=== PATIENT | male | born 1935 | race Caucasian/White ===

== ENCOUNTER → 2019-09-09 10:45 | Outpatient (CLI) | payer MEDICARE, OTHER, SELFPAY ==
--- NOTE | 2019-09-16 15:54 | PM.PFT.1 ---
Pulmonary Function Test Referral & Results Date Patient Seen: 09/09/19 Requesting provider: Artemio Nguyen Results: The spirometry demonstrates an FVC of 4.12 L which is 93% of predicted. The FEV1 was measured at 3.19 L which is 101% of predicted. The FEV1/FVC ratio was 77 which is 109% of predicted. Following the administration of bronchodilator there was no appreciable change to above normal numbers. Lung volumes show an SVC of 3.93 L which is 81% of predicted. The diffusing capacity was measured at 18.19 which is 50% of predicted. No hemoglobin value was provided, so no correction for potential anemia could be made, if appropriate. The maximum voluntary ventilation was normal Interpretation: This study demonstrates probably normal spirometry but a moderately severe reduction in diffusing capacity suggesting significant disease at the capillary alveolar level Clinical correlation suggested
== END ==
PROVIDERS: Family Provider Student in an Organized Health Care Education/Training Program; PCP Student in an Organized Health Care Education/Training Program; Referring Provider Student in an Organized Health Care Education/Training Program; Visit Provider Student in an Organized Health Care Education/Training Program
DX: J98.4 Other disorders of lung (principal); R53.82 Chronic fatigue, unspecified; Z87.891 Personal history of nicotine dependence
CPT/HCPCS: 94060; 94726; 94729

== ENCOUNTER → 2020-02-03 10:10 | Outpatient (CLI) | payer MEDICARE, OTHER, SELFPAY ==
--- NOTE | 2020-02-03 18:04 | DI.NM.S_ITS ---
DATE OF SERVICE: 02/03/2020 PROCEDURE: Exercise perfusion study. INDICATIONS: Shortness of breath, Paroxysmal AFib. RADIOPHARMACEUTICAL: 24.9 millicurie technetium-99m Myoview IV was injected at stress and 12.2 millicurie technetium-99m Myoview IV was injected at rest. CARDIAC STRESS: The patient underwent exercise perfusion study under the supervision of an attending staff. The patient walked on César protocol for 2 minutes and 20 seconds and achieved functional aerobic impairment of positive 36 percent, 96 percent of target heart rate and normal blood pressure response. The patient did not have any chest pain, but had significant shortness of breath during exercise. Achieved 4.6 METS of workload. Baseline EKG revealed sinus rhythm with low-voltage complexes. During stress, there were some PVCs and PACs, but no ischemic changes. In recovery, there was a short burst of atrial tachycardia without any obvious atrial fibrillation. RAW DATA: Heart is vertical. There is increased subdiaphragmatic activity. There is a hot spot near the apex, as well as liver position is high. GATED STUDY: Stress LV ejection fraction 70 percent without any obvious wall motion abnormalities and resting end-diastolic volume 129 mL. TID ratio is 0.86, which is within normal limits. Lung/heart ratio 0.41, which is within normal limits. MYOCARDIAL PERFUSION: Stress supine, resting supine and stress prone images were compared to each other. It appears to be that patient has predominantly fixed, moderate-size, moderate to severely decreased perfusion of distal anterior wall and apex without any significant reversible ischemia. CONCLUSION: There is a predominantly fixed apical and distal anterior wall defect, as stated below, without any reversible ischemia. There is increased subdiaphragmatic activity and hot spot seen near the apex. Heart is vertical. The liver position is high. On raw data, there are no obvious wall motion abnormalities and apex is moving well. Hence, this defect could be a persistent tissue attenuation artifact. However, one cannot rule out possibility of nontransmural myocardial infarction. Correlate clinically. Lucas Tafoya - WILBER/ainsley/evert doc#: [id number]/job#: [id number] dd: 02/03/2020 17:35:00 dt: 02/03/2020 17:55:00 DICTATING MD/COPIES TO: Andres Abarca MD COPIES MNE: LUIS;
== END ==
PROVIDERS: Family Provider Student in an Organized Health Care Education/Training Program; PCP Student in an Organized Health Care Education/Training Program; Referring Provider Internal Medicine Cardiovascular Disease; Visit Provider Internal Medicine Cardiovascular Disease
DX: I48.0 Paroxysmal atrial fibrillation (principal); R06.02 Shortness of breath
CPT/HCPCS: 78452; 93017; A9502

== ENCOUNTER → 2021-04-04 10:47 | Outpatient (CLI) | payer MEDICARE, OTHER, SELFPAY ==
--- OUTSIDE RECORDS SUMMARY | 2021-03-25 07:16 | XMS_ITS | Referral Summary ---
:1935 Author Organization [facility] Address [address] [place] [id number] Care Team Providers Name Role Phone Patrick Primary Care Provider Reason for Referral Consultation (Routine) - Authorized Specialty Diagnoses / Procedures Referred By Contact Refer red To Contact Diagnoses Centrilobular emphysema (CMS/HCC) Pulmonary fibrosis (CMS/HCC) Marvin Gaytan MD [facility] Procedures Complete PFT with DLCO [address] [address] Referral ID Status Reason Start Date Expiration Date Visits V isits Requested Authorized [id number] Authorized 04/26/2020 04/21/2021 1 1 MRI/CAT/PET Scan (Routine) - Authorized Specialty Diagnoses / Procedures Referred By Contact Refer red To Contact Radiology Diagnoses Interstitial pulmonary disease (CMS/HCC) Marvin Gaytan MD [facility] Procedures CT HIGH RESOLUTION CHEST [address] [place], [place] [address] [place] [phone] Phone: Referral ID Status Reason Start Expiration Visits Visits Date Date Requested Authorized [id number] Authorized Specialty 04/21/2021 1 1 Services 0 Required Reason for Visit Reason Comments Shortness of Breath pulm fibrosis Evaluate and Treat (Routine) - Closed Specialty Diagnoses / Procedures Referred By Contact Refer red To Contact Pulmonology Diagnoses Pulmonary fibrosis, unspecified Dyspnea, unspecified Vinny Zimmer DO [facility] Pulmonology Procedures [address] [facility] [address] [place], [place] [address] [place] [address] Phone: Fax: Referral ID Status Reason Start Date Expiration Date Visits Requ ested Visits Authorized [id number] Closed 04/11/2020 04/11/2021 1 1 Encounter Details Date Type Department Care Team Description 04/26/2020 Office Visit Ronnie Salinaslobufela r emphysema ([facility]) (Primary Dx); Clinics Pulmonology MD Marvin Hypoxemia; [place] [address] Pulmonary fibrosis ([facility]) ; [address] Interstitial pulmonary disease ([facility]) ; [place], [place] Paroxys mal atrial fibrillation ([facility]) [id number] Allergies Active Allergy Reactions Severity Noted Date Comments Codeine 04/01/2017 Naproxen 09/11/2010 Venom-Wasp Hives High 06/21/2013 documented as of this encounter (statuses as of 03/22/2021) Medications Medication Sig Dispensed Refills Start End Date Status Date levothyroxine Take 50 mcg by 0 A ctive (SYNTHROID, mouth daily 7 LEVOTHROID) 50 mcg tablet warfarin Take 5 mg 5 Active (COUMADIN) 5 mg eda, 7 tablet , Thursday and Thursday. On Thursday, Thursday, and Thursday take 7.5 mg magnesium oxide Take 400 mg by 0 Active (MAG-OX) 400 mg mouth daily 7 tablet atorvastatin Take 10 mg by 0 Act laisha (LIPITOR) 20 mg mouth every 0 tablet evening Take 0.5 tablets by mouth in morning pantoprazole Take 1 tablet 90 tablet 3 07/02/20 Exp ired (PROTONIX) 40 mg (40 mg total) 9 20 EC tablet by mouth every morning before breakfast bicalutamide TAKE ONE 30 tablet 11 09/11/19 Discont inued (CASODEX) 50 mg TABLET BY 0 21 chemo tablet MOUTH EVERY DAY TAKE AT THE SAME TIME EVERY DAY WITH OR WITHOUT FOOD diltiazem CD Take 1 capsule 180 capsule 3 05/07/20 Discontinued (CARDIZEM CD) 120 (120 mg total) 0 20 (Reorder) mg 24 hr capsule by mouth 2 (two) times a day for pulse rate control during atrial fibrillation. documented as of this encounter (statuses as of 03/22/2021) Active Problems Problem Noted Date Centrilobular emphysema 04/26/2020 Pulmonary fibrosis 04/26/2020 Hypoxemia 04/26/2020 Paroxysmal atrial fibrillation 10/20/2019 Lower GI bleeding 06/30/2019 Change in bowel habits 08/09/2018 Overview: Added automatically from request for eugenia alvarez [id number] Prostate cancer 06/04/2017 documented as of this encounter (statuses as of 03/22/2021) Social History Tobacco Use Types Packs/Day Years Used Date Former Smoker Smokeless Tobacco: Never Used Comments: quit in Alcohol Use Standard Drinks/Week Comments No 0 (1 standard drink = 0.6 oz pure alcoho l) Sex Assigned at Date Recorded Male 08/27/2019 2:28 PM PST Job Start Date Occupation Industry Not on file Not on file Not on file documented as of this encounter Last Filed Vital Signs Vital Sign Reading Time Taken Comments Blood Pressure 115/73 04/26/2020 1:04 PM PDT Pulse 56 04/26/2020 1:04 PM PDT Temperature - - Respiratory Rate - - Oxygen Saturation 99% 04/26/2020 1:04 PM PDT Inhaled Oxygen Concentration - - Weight 73.8 kg (162 lb 11.2 oz) 04/26/2020 1:04 PM PDT Height 185.4 cm (6' 1) 04/26/2020 1:04 PM PDT Body Mass Index 21.47 04/26/2020 1:04 PM PDT documented in this encounter Progress Notes Marvin Gaytan MD - 04/26/2020 1:00 PM PDT You need follow up PFTs and chest CT in September 2020. Follow up with Dr. Gaytan after tests. Mario Gaytan MD - 04/26/2020 1:00 PM PDT Subjective Patient ID: Lucas Tafoya is a 84 y.o. male that had concerns including Shortness of Breath and pulm fibrosis. HPI The patient is a pleasant 84-year-old man with history of shortness of breath over the last several months. Patient reports progressive dyspnea with activity. Was recently seen in the emergency department for shortness of breath. The patient reports that he was seen by his primary care provider a we ek ago and was started on supplemental oxygen at home. The patient reports approximately [id number] history of smoking but quit in 1984. 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 Initial diagnosed in 2000. Received prostate resection and then radiation therapy. Also received radiation therapy to the chest. Follow-up imaging showed no evidence of recurrenceof prostate cancer. Patient had CT of the chest and abdomen on August 25, 2019 which demonstratedapical emphysema but also areas of reticulation and honeycomb changes in the subpleural lower lobe areas. As mild bronchiectasis in the left lung. Denies any cough or wheezing. Patient has history of chronic atrial fibrillation and is on anticoagulation. Also has been diagnosed with sleep apnea and is being followed in [place]. Uses CPAP therapy but reports dry mouth. Past Medical History: Diagnosis Date ??? Atrial fibrillation (CMS/HCC) ??? Colon polyp ??? Diverticulitis ??? Diverticulosis ??? Emphysema of lung (CMS/HCC) ??? GERD (gastroesophageal reflux disease) ??? Hiatal hernia ??? Incontinence of urine ??? Kidney stone ??? Lichen planus ??? Pneumonia ??? Sleep apnea Past Surgical History: Procedure Laterality Date ??? ARM SKIN LESION BIOPSY / EXCISION Left 11/04/2004 [facility]_5cm CAYLA soft tissue_ Melchor Maciel MD ??? CATARACT EXTRACTION ??? COLON SURGERY resection ??? COLONOSCOPY W/ BIOPSIES 10/09/2011 [facility]_MD Angelica ??? COLONOSCOPY W/ BIOPSIES AND POLYPECTOMY 10/09/2011 Colon, Sigmoid, Biopsy_MD Bridgette per NexGen ??? LEG SURGERY foreign metal object removed ??? PA COLONOSCOPY FLX DX W/COLLJ SPEC WHEN PFRMD N/A 08/18/2018 Procedure: COLONOSCOPY; Surgeon: Cecil Hastings MD; Location: [facility] GI; Service: General ??? PA COLONOSCOPY FLX DX W/COLLJ SPEC WHEN PFRMD N/A 07/01/2019 Procedure: Upper endoscopy and colonoscopy; Surgeon: Mal Manuel MD; Location: [facility] GI; Service: Gastroenterology ??? PA ESOPHAGOGASTRODUODENOSCOPY TRANSORAL DIAGNOSTIC N/A 07/01/2019 Procedure: DIAGNOSTIC UPPER GASTROINTESTINAL ENDOSCOPY WITH COLLECTION OF SPECIMEN BY WASHING; Surgeon: Mal Manuel MD; Location: [facility]; Service: Gastroenterology ??? PROSTATECTOMY Family History Problem Relation Age of Onset ??? No Known Problems Mother ??? No Known Problems Father Social History Socioeconomic History ??? Marital status: Spouse name: Not on file ??? Number of children: Not on file ??? Years of education: Not on file ??? Highest education level: Not on file Occupational History ??? Not on file Social Needs ??? Financial resource strain: Not on file ??? Food insecurity Worry: Not on file Inability: Not on file ??? Transportation needs Medical: Not on file Non-medical: Not on file Tobacco Use ??? Smoking status: Former Smoker ??? Smokeless tobacco: Never Used ??? Tobacco comment: quit in Substance and Sexual Activity ??? Alcohol use: No ??? Drug use: Never ??? Sexual activity: Defer Lifestyle ??? Physical activity Days per week: Not on file Minutes per session: Not on file ??? Stress: Not on file Relationships ??? Social connections Talks on phone: Not on file Gets together: Not on file Attends confucianism service: Not on file Active member of club or organization: Not on file Attends meetings of clubs or organizations: Not on file Relationship status: Not on file Other Topics Concern ??? Not on file Social History Narrative ??? Not on file Allergies Allergen Reactions ??? Venom-Wasp Hives ??? Codeine ??? Naproxen Current Medication List Sig atorvastatin (LIPITOR) 20 mg tablet Take 10 mg by mouth every evening Take 0.5 tablets by mouth in morning bicalutamide (CASODEX) 50 mg chemo tablet TAKE ONE TABLET BY MOUTH EVERY DAY TAKE AT THE SAME TIME EVERY DAY WITH OR WITHOUT FOOD diltiazem CD (CARDIZEM CD) 120 mg 24 hr capsule Take 1 capsule (120 mg total) by mouth 2 (two) times a day for pulse rate control during atrial fibrillation. levothyroxine (SYNTHROID, LEVOTHROID) 50 mcg tablet Take 50 mcg by mouth daily magnesium oxide (MAG-OX) 400 mg tablet Take 400 mg by mouth daily pantoprazole (PROTONIX) 40 mg EC tablet Take 1 tablet (40 mg total) by mouth every morning before breakfast warfarin (COUMADIN) 5 mg tablet Take 5 mg , , Thursday and Thursday. On Thursday, Thursday, and Thursday take 7.5 mg Review of Systems Constitutional: Positive for fatigue and unexpected weight change. Respiratory: Positive for apnea and shortness of breath. Allergic/Immunologic: Positive for environmental allergies. Neurological: Positive for tremors and light-headedness. Objective BP 115/73 (BP Location: Left arm, Patient Position: Sitting) Pulse (!) 56 Ht 1.854 m Wt 73.8 kg SpO2 99% BMI 21.47 kg/m?? Physical Exam Vitals signs reviewed. Constitutional: Appearance: Normal appearance. HENT: Head: Normocephalic. Nose: Nose normal. Mouth/Throat: Mouth: Mucous membranes are moist. Eyes: Extraocular Movements: Extraocular movements intact. Cardiovascular: Rate and Rhythm: Normal rate. Rhythm irregular. Heart sounds: No murmur. No gallop. Pulmonary: Effort: Pulmonary effort is normal. No respiratory distress. Breath sounds: Rhonchi present. No wheezing or rales. Abdominal: General: Abdomen is flat. Skin: General: Skin is warm. Neurological: General: No focal deficit present. Mental Status: He is alert and oriented to person, place, and time. Psychiatric: Behavior: Behavior normal. EXAM DATE: 08/25/2019 13:54 ORDERED FROM: [facility] ORDERING PHYSICIAN: CHRISTOPH LEIGH CC: -- - - - CONTRAST: ISOVUE 300 100ML READING STATION ID: [id number] mGy: PROCEDURE: CT CHEST ABDOMEN PELVIS WITH CONTRAST INDICATIONS: prostate cancer, surveillance TECHNIQUE: After the administration of oral and intravenous contrast, 5 mm thick sections acquired from the lung apices to the symphysis. 5 mm coronal and sagittal reformats were performed, with additional 7 mm axial MIP reformats through the lungs. For radiation dose reduction, the following was used: automated exposure control, adjustment of mA and/or kV according to patient size. COMPARISON: [facility], CT, CT CHEST ABDOMEN PELVIS WITH CONTRAST, 07/21/2018, 12:14. FINDINGS: Image quality: Excellent. CHEST: Lungs and pleura: There are mild apical centrilobular and paraseptal emphysematous changes, but mostpredominantly upper and lower lobe subpleural reticulation with honeycombing along the posterior lower lobes bilaterally. Small consolidative change at the posterior left lung base where slight traction bronchiectasis is also present. Scattered parenchymal cysts in the right middle and bilateral lowerlobes. Findings are fairly stable. No new pulmonary nodules, masses, or effusions. Central and peripheral airways appear patent and normal in caliber. Mediastinum: Heart size is normal. The moderate to heavy coronary artery calcification. No pericardial effusion. No mediastinal or hilar adenopathy by size criteria. Thoracic aorta and central pulmonary arteries are normal in size. Esophagus is normal in caliber. Large, chronic hiatal hernia. Chest wall: Left IJ Mediport. Moderate bilateral gynecomastia. No axillary or supraclavicular adenopathy by size criteria. Thyroid gland is normal. ABDOMEN: Solid organs: Liver is normal in size and enhancement. Gallbladder contains a small calcification layering in the neck. Kidneys demonstrate normal size and enhancement, without hydronephrosis. Multiple small renal cysts bilaterally. Nonobstructing calcifications in the left kidney upper pole. Biliary system is non dilated. Pancreas enhances normally. Spleen is normal in size and enhancement. Noadrenal nodules. Peritoneum and bowel: Surgical changes of partial colectomy. Normal small bowel. Diverticulosis and increased quantity of solid stool in the colon. No free fluid or air. Nodes and vessels: No retroperitoneal or mesenteric adenopathy by size criteria. Aorta and inferior vena cava are normal in size. Mild abdominal aortic calcification. Miscellaneous: No ventral hernias. PELVIS: Genitourinary: Bladder wall thickness is normal. The prostate gland is surgically absent. Miscellaneous: No inguinal hernias or adenopathy. Bones: No suspicious bony lesions. Chronic vertebral body hemangioma and healing left posterior ribfractures. No vertebral body compression fractures. IMPRESSION: 1. No CT evidence of residual or recurrent disease in the chest, abdomen, or pelvis. 2. No new adenopathy. 3. Chronic and fairly stable changes of pulmonary emphysema and pulmonary fibrosis. 4. Cholelithiasis. 5. Nephrolithiasis. 6. Prostatectomy and partial colectomy PFTs from [place] in September 2019 showed normal gloria and lung volumes with no evidence of obstructive or restrictive disease. No results found for this or any previous visit (from the past 672 hour(s)). Patient Active Problem List Diagnosis ??? Prostate cancer (CMS/HCC) ??? Change in bowel habits ??? Lower GI bleeding ??? Paroxysmal atrial fibrillation (CMS/HCC) ??? Centrilobular emphysema (CMS/HCC) ??? Pulmonary fibrosis (CMS/HCC) ??? Hypoxemia Assessment/Plan Diagnoses and all orders for this visit: Centrilobular emphysema (CMS/HCC) - Complete PFT with DLCO; Future Hypoxemia Pulmonary fibrosis (CMS/HCC) - Complete PFT with DLCO; Future Interstitial pulmonary disease (CMS/HCC) - CT HIGH RESOLUTION CHEST; Future Paroxysmal atrial fibrillation (CMS/HCC) Assessment/Plan Comments: #1. There are some areas of emphysema consistent with previous history of smoking but no evidence of any significant airflow limitation on recent pulmonary function tests. #2. I personally reviewed pulmonary function test and CT. The mild fibrotic changes may be relatedto previous history of radiation therapy to the chest. Differential diagnosis also includes early IPF. No evidence of restrictive defect. We discussed the difference between emphysema and pulmonary fibrosis. At this time would recommend observation and will repeat high-resolution CT of the chest and pulmonary function test in September patient follow-up with me afterwards. #3. Hypoxemia. Patient has home oxygen. Today oxygen saturations were 99% and patient did not desaturate during 6-minute walk test. His episodes of hypoxemia or shortness of breath may have been due to atrial fibrillation. Patient reports having mildly reduced ejection fraction. Patient is scheduled to follow-up with cardiology. #4 atrial fibrillation. As discussed above. May be contributing to patient's shortness of breath. All questions were answered and patient and his were appreciative. Electronically signed by Marvin Gaytan MD 04/26/2020 2:18 PM documented in this encounter Plan of Treatment Scheduled Orders Name Type Priority Associated Diagnoses Order S chedule CT HIGH RESOLUTION Imaging Routine Interstitial pulmonary Expected: CHEST disease (CMS/HCC) 09/10/2020 , Expires: 07/27/2021 Complete PFT with DLCO PFT Routine Centrilobular emph ysema Expected: (CMS/HCC) 09/10/2020, Expires: Pulmonary fibrosis (CMS/HCC) documented as of this encounter Visit Diagnoses Diagnosis Centrilobular emphysema (CMS/HCC) - Prim marcus Hypoxemia Pulmonary fibrosis (CMS/HCC) Postinflammatory pulmonary fibrosis Interstitial pulmonary disease (CMS/HCC) Paroxysmal atrial fibrillation (CMS/HCC) Atrial fibrillation documented in this encounter Insurance Payer Benefit Plan / Subscriber ID Effective Dates Phone Addre ss Type Group MEDICARE MEDICARE PART [id number] 2000-Presen [phone] [address] [place] [address] [employer] [id number] 2019-Presen [phone] [address] [address] [address] [place] [address] documented as of this encounter Advance Directives Documents on File Type Date Recorded Patient Employee Benefits Director Explanati on Advance Directives and Living Will Latest Code Status on File Code Status Date Activated Date Inactivated Comments Full Code 07/01/2019 6:50 PM 07/02/2019 1:47 PM Full Code 06/30/2019 7:36 PM 07/01/2019 6:50 PM Full Code 06/30/2019 6:24 PM 06/30/2019 7:36 PM Full Code 08/18/2018 12:44 PM 08/18/2018 4:28 PM Care Teams Electronic Train Control Technician Relationship Specialty Start Date End Date Artemio Nguyen PCP - General 03/06/[address] [place] [id number] documented as of this encounter
[2021-04-04 11:43] LABS: COVID19 -Nasal RAPID Negative (Negative)
--- NOTE | 2021-04-10 09:45 | PM.PFT.1 ---
Pulmonary Function Test Referral & Results Date Patient Seen: 04/04/21 Requesting provider: Marvin Gaytan Indication: Emphysema, pulmonary fibrosis Results: The spirometry demonstrates an FVC of 3.65 L which is 84% of predicted. The FEV1 was measured at 3.33 L which is 109% of predicted. The FEV1/FVC ratio was 91 which is 130% of predicted. Following the administration of bronchodilator there was no appreciable change Lung volumes show an SVC of 3.42 L which is 71% of predicted. The diffusing capacity was measured at 17.06 which is 46% of predicted. No hemoglobin value was provided, so no correction for potential anemia could be made, if appropriate. The maximum voluntary ventilation was Normal Interpretation: This study demonstrates reduction in lung volumes suggesting mild to moderate restrictive lung disease. Diffusing capacity is more severely affected suggesting more significant disease at the capillary alveolar level Compared to PFTs performed in September of 2019, current study is essentially unchanged
== END ==
PROVIDERS: Family Provider Student in an Organized Health Care Education/Training Program; PCP Student in an Organized Health Care Education/Training Program; Referring Provider Internal Medicine Critical Care Medicine; Visit Provider Internal Medicine Critical Care Medicine
DX: J43.2 Centrilobular emphysema (principal); J84.10 Pulmonary fibrosis, unspecified; Z87.891 Personal history of nicotine dependence
CPT/HCPCS: 87635; 94060; 94726; 94729; C9803

== ENCOUNTER → 2022-04-24 10:14 | Outpatient (CLI) | payer MEDICARE, OTHER, SELFPAY ==
[2022-04-24 11:02] LABS: COVID19 -Nasal RAPID Negative (Negative)
== END ==
PROVIDERS: Family Provider Student in an Organized Health Care Education/Training Program; PCP Student in an Organized Health Care Education/Training Program; Referring Provider Internal Medicine; Visit Provider Internal Medicine
DX: Z20.822 Contact with and (suspected) exposure to COVID-19 (principal)
CPT/HCPCS: 87635; C9803

== ENCOUNTER → 2022-04-24 10:17 | Outpatient (CLI) | payer MEDICARE, OTHER, SELFPAY ==
--- NOTE | 2022-04-30 11:28 | PM.PFT.1 ---
Pulmonary Function Test Referral & Results Date Patient Seen: 04/24/22 Requesting provider: Marvin Gaytan Results: The spirometry demonstrates an FVC of 3.32 L which is 77% of predicted. The FEV1 was measured at 3.07 L which is 102% of predicted. The FEV1/FVC ratio was 92 which is 132% of predicted. Following the administration of bronchodilator there was no appreciable change. Lung volumes show an SVC of 3.01 L which is 63% of predicted. The diffusing capacity was measured at 14.32 which is 39% of predicted. No hemoglobin value was provided, so no correction for potential anemia could be made, if appropriate. The maximum voluntary ventilation was normal Interpretation: This study demonstrates normal forced spirometry but there is a moderate reduction in lung volumes suggesting the presence of moderate restrictive lung disease There is a moderately severe reduction diffusing capacity suggesting moderately severe disease at the capillary alveolar level Compared to PFTs performed in March 2021, current study shows decline in diffusing capacity but spirometry appears essentially unchanged although the maybe a slight reduction in total lung volume as well suggesting perhaps some advancement of restrictive lung disease Clinical correlation suggested
== END ==
PROVIDERS: Family Provider Student in an Organized Health Care Education/Training Program; PCP Student in an Organized Health Care Education/Training Program; Referring Provider Internal Medicine Critical Care Medicine; Visit Provider Internal Medicine Critical Care Medicine
DX: R06.02 Shortness of breath (principal); Z20.822 Contact with and (suspected) exposure to COVID-19; Z87.891 Personal history of nicotine dependence; J98.8 Other specified respiratory disorders
CPT/HCPCS: 87635; 94060; 94726; 94729; C9803

== ENCOUNTER → 2022-09-01 14:41 | Outpatient (CLI) | payer MEDICARE, OTHER, SELFPAY ==
--- NOTE | 2022-09-01 14:44 | DI.ECHO.S_ITS ---
[facility] +---------+ : : [address] : [address] [place] : : : : [id number] : : : : Phone: [phone] +---------+ Echocardiogram Report + + :Name: BARBARA HOUSTON Study Date: 09/01/2022 Height: 72 in : :[facility] ReadingLocation: Weight: 153 lb: : Gender: Male BSA: 1.9 m2 : :: 1935 Age: 86 yrs : :Reason For Study: Paroxysmal atrial fibrillation : :Ordering Physician: Paul : :Tanja Performed By: Dana Walters : :Referring: PAUL PIMENTEL C : + + Interpretation Summary The patient was in atrial fibrillation with rapid ventricular response during the exam with a heart rate exceeding 100 bpm. Normal left ventricle size with ejection fraction 55 +/- 5%. Mild aortic valve sclerosis. Mild mitral annular calcification. Mild to moderate mitral regurgitation. Mild tricuspid regurgitation. Procedure: A two-dimensional transthoracic echocardiogram with color flow and Doppler was performed. The study quality was technically adequate. There has been no significant change since the previous study. The patient was in atrial fibrillation with rapid ventricular response during the exam with a heart rate exceeding 100 bpm. Left Ventricle: The left ventricle is normal in size and wall thickness. Left ventricular ejection fraction is estimated to be 55 +/- 5%. There are no focal wall motion abnormalities. Diastolic function could not be accurately assessed due to atrial fibrillation. Right Ventricle: The right ventricle is normal in size and function. Atria: The left atrial size is normal. Right atrial size is normal. There is no Doppler evidence for an interatrial shunt. Mitral Valve: The mitral valve leaflets appear mildly thickened, but open well. The mitral valve leaflets appear to open well. The mitral valve leaflets are slightly calcified. There is mild mitral annular calcification. There is borderline mitral valve prolapse. There is mild to moderate mitral regurgitation. There are multiple regurgitant jets present. Aortic Valve: The aortic valve is normal in structure and function. There is mild aortic valve sclerosis. There is trace aortic regurgitation. Tricuspid Valve: The tricuspid valve is normal in structure and function. There is mild tricuspid regurgitation. Pulmonic Valve: The pulmonic valve leaflets are thin and pliable; valve motion is normal. There is mild to moderate pulmonic regurgitation. Great Vessels: The aortic root is borderline dilated. The ascending aorta is normal in size. The pulmonary artery is normal size. The IVC is of normal diameter and collapses greater than 50% with a sniff. This suggests a low right atrial pressure of 3 mm Hg. Pericardium/ Pleura There is no pericardial effusion. There is no pleural effusion. MMode/2D Measurements & Calculations LVIDd: 4.2 cm LVOT diam: 1.9 cm LVIDs: 2.7 cm Ao root diam: 3.8 cm FS: 35.7 % asc Aorta Diam: 3.3 cm EPSS: 1.4 cm IVSd: 1.0 cm LVPWd: 0.90 cm LV pascual. diameter/BSA (cm/m^2): 2.2 LV sys. diameter/BSA (cm/m^2): 1.4 LA dimension: 3.6 cm RA long axis: 4.1 cm LA A2 area: 15.5 cm2 RA area: 11.6 cm2 LA A4 area: 17.9 cm2 RA vol: 28.2 ml LA length (vol): 5.0 cm RA : 14.8 ml/m2 LA vol: 46.9 ml IVC diam: 1.8 cm LA vol index: 24.7 ml/m2 RVD1 (basal): 3.3 cm LVLs ap4: 5.2 cm LVLd ap2: 6.7 cm TAPSE_phl: 1.6 cm LVLs ap2: 5.5 cm Doppler Measurements & Calculations Ao V2 max: 114.0 cm/sec LVOT Max Stanley: 91.4 cm/sec Ao V2 mean: 81.0 cm/sec LV V1 max P.4 mmHg Ao max P.0 mmHg LV V1 VTI: 16.2 cm Ao mean P.0 mmHg MAREK(I,D): 2.4 cm2 Ao V2 VTI: 18.8 cm MAREK(V,D): 2.3 cm2 sev ratio: 0.86 MAREK indexed to BSA (cm^2/m^2): 1.3 MV E max stanley: 93.5 cm/sec TR max stanley: 266.0 cm/sec Med Peak E' Stanley: 9.3 cm/sec TR max P.3 mmHg E/E' med: 10.0 PA V2 max: 98.6 cm/sec Lat Peak E' Stanley: 17.3 cm/sec PA V2 mean: 67.8 cm/sec E/E' lat: 5.4 PA mean P.3 mmHg E/e' average: 7.7 MV dec time: 0.21 sec MVA(VTI): 2.5 cm2 MV V2 mean: 62.1 cm/sec MR VTI: 137.0 cm MV mean P.0 mmHg MV V2 VTI: 18.3 cm SV(LVOT): 45.8 ml AV VR_phl: 0.80 MAREK(VTI)/BSA_phl: 1.3 Electronically signed by: Miladis Norwood on Reading Physician:09/01/2022 05:58 PM
== END ==
PROVIDERS: Family Provider Student in an Organized Health Care Education/Training Program; PCP Student in an Organized Health Care Education/Training Program; Referring Provider Physician Assistant; Visit Provider Physician Assistant
DX: I48.0 Paroxysmal atrial fibrillation (principal); I08.3 Combined rheumatic disorders of mitral, aortic and tricuspid valves
CPT/HCPCS: 93306

== ENCOUNTER → 2023-02-19 09:53 | Outpatient (CLI) | payer MEDICARE, OTHER, SELFPAY ==
--- NOTE | 2023-02-19 11:55 | DI.CT.S_ITS ---
PROCEDURE: CT CHEST HIGH RESOLUTION INDICATIONS: IPF TECHNIQUE: Noncontrast 1.0 and 5.0 mm thick contiguous axial sections from the pulmonary apex to the posterior costophrenic angles, with 7 mm thick coronal and sagittal MIP reformats. 1 mm thick dynamic expiratory images acquired through the upper, mid, and lower lungs. 1.0 mm thick axial sections acquired from the micah to the posterior costophrenic angles in the prone end-inspiration position. For radiation dose reduction, the following was used: automated exposure control, adjustment of mA and/or kV according to patient size. COMPARISON: Outside Film, CT, CT HIGH RESOLUTION CHEST, 04/01/2022, 13:10. FINDINGS: Image quality: Excellent. Lungs: Diffuse reticulation with bronchiectasis and honeycombing, with slight interval progression from prior. Stable architectural distortion of the left lower lobe. Superimposed moderate paraseptal emphysema. Pleura: No pleural effusions or pneumothorax. Mediastinum: Heart size is mildly enlarged, with three-vessel coronary calcifications. No pericardial effusion. Mild dilation of the pulmonary artery. Esophagus is normal in caliber. Heterogeneous thyroid. Large hiatal hernia. Bones and chest wall: No suspicious bony lesions. No vertebral body compression fractures. Gynecomastia. Abdomen: Nodular thickening of the left adrenal gland. IMPRESSION: Slight interval progression of interstitial lung disease, in a definite UIP pattern. Large hiatal hernia. Mild dilation of the main pulmonary artery, suggestive of pulmonary hypertension. Dictated by: Andres Cifuentes M.D. on 02/19/2023 at 14:13 Approved by: Andres Cifuentes M.D. on 02/19/2023 at 14:17
== END ==
PROVIDERS: Family Provider Student in an Organized Health Care Education/Training Program; PCP Student in an Organized Health Care Education/Training Program; Referring Provider Internal Medicine Critical Care Medicine; Visit Provider Internal Medicine Critical Care Medicine
DX: J84.10 Pulmonary fibrosis, unspecified (principal); J96.11 Chronic respiratory failure with hypoxia; J84.9 Interstitial pulmonary disease, unspecified; K44.9 Diaphragmatic hernia without obstruction or gangrene; F17.210 Nicotine dependence, cigarettes, uncomplicated; J98.8 Other specified respiratory disorders
CPT/HCPCS: 71250; 94060; 94726; 94729